=== PATIENT | male | born 1995 | race Caucasian/White ===

== ENCOUNTER 2022-11-02 09:57 | Emergency (ER) | payer MEDICAID ==
[~2022-11-02] VITALS: Ht 177.8 cm; Wt 97.7 kg
[2022-11-02 10:19] LABS: COVID AG,FIA SOURCE NASAL SWAB
[2022-11-02 10:48] LABS: RAPID GROUP A STREP NEGATIVE (NEGATIVE)
[2022-11-02 10:51] LABS: INFLUENZA TYPE A NEGATIVE FOR TYPE A (NEGATIVE); INFLUENZA TYPE B POSITIVE FOR TYPE B (NEGATIVE)
[2022-11-02] MEDS ORDERED: OSEL75 PO (13:44)
[2022-11-02 13:55] VITALS: BP 126/67
== END 2022-11-02 14:43 | disposition home or self-care (01) ==
LOC: EMS 09:57
DX: J11.1 Influenza due to unidentified influenza virus with other respiratory manifestations (principal); Z20.822 Contact with and (suspected) exposure to COVID-19
CPT/HCPCS: 87430; 87804; 99283